=== PATIENT | female | born 1980 | race Two or more races ===

== ENCOUNTER → 2024-11-06 | Outpatient (CLI) | payer MEDICAID, SELFPAY ==
--- NOTE | 2024-11-06 10:15 | XR_ITS ---
Examination: Screening digital mammography, bilateral Computer aided detection 3-D breast Tomosynthesis, bilateral Date and time of exam: November 06, 2024 1031 hours Comparison left breast sonogram July 19, 2022 Indication: Screening Technique: Nonmagnified MLO, CC views of the breasts to been obtained, reconstructed from 3-D Tomosynthesis images. R2 computer aided detection program utilized for evaluation of suspicious masses and/or abnormal calcifications. 3-D Tomosynthesis images obtained. Findings: The breasts are heterogeneously dense, which may obscure small masses 12 mm focal asymmetry upper right breast MLO view, 5.9 cm from the nipple Benign calcifications Impression: BI-RADS Category 0: Incomplete: Need additional imaging evaluation 12 mm focal asymmetry upper right breast MLO view, 5.9 cm from the nipple Recommend follow-up spot tomographic views upper outer quadrant right breast anterior depth, right breast sonography to complete the workup
== END | disposition home or self-care (01) ==
LOC: CDIM 10:25
PROVIDERS: Referring Provider Nurse Practitioner Family; Visit Provider Nurse Practitioner Family
DX: Z12.31 Encounter for screening mammogram for malignant neoplasm of breast (principal); R92.8 Other abnormal and inconclusive findings on diagnostic imaging of breast; N64.89 Other specified disorders of breast
CPT/HCPCS: 77063; 77067

== ENCOUNTER 2025-07-15 05:30 | Day surgery (SDC) | payer MEDICAID, SELFPAY ==
--- NOTE | 2025-07-13 06:33 | EKG_ITS ---
[facility] Test Date: 2025-07-13 Pat Name: BIANCA GROSSMAN Department: Room: - Gender: Female [employer] Concierge: LESLEE : 1980 Requested By: Julissa Montilla Order Number: [id number] Reading MD: Julissa Montilla Measurements Intervals [place] Rate: 68 P: 44 AL: 156 QRS: 18 QRSD: 97 T: 33 QT: 369 QTc: 393 Interpretive Statements SINUS RHYTHM No previous ECG available for comparison /[id number]/[email or web address]/[id number]
[2025-07-13 07:29] VITALS: BMI 30.1
[2025-07-13 09:53] LABS: Basophils # (Auto) 0.0 Thou/mm3 (0.0-0.2); Basophils % (Auto) 0 % (0-2.5); Eosinophils # (Auto) 0.1 Thou/mm3 (0.0-0.5); Eosinophils % (Auto) 1 % (0-10); Hematocrit 33.4 % (36.0-46.0); Hemoglobin 9.2 g/dL (12.0-16.0); Immature Granulocytes Auto 0.03 Thou/mm3 (0.00-0.00); Lymphocytes # (Auto) 2.6 Thou/mm3 (1.0-4.8); Lymphocytes % (Auto) 30 % (10-50); Mean Corpuscular HGB Conc 27.5 g/dl (31.0-37.0); Mean Corpuscular Hemoglobin 20.1 pg (25.0-35.0); Mean Corpuscular Volume 73 fL (80-100); Monocytes # (Auto) 0.6 Thou/mm3 (0.0-0.8); Monocytes % (Auto) 7 % (0-12); Neutrophils # (Auto) 5.3 Thou/mm3 (1.8-7.7); Neutrophils % (Auto) 62 % (37-80); Nucleated Red Blood Cell # 0.00 Thou/mm3 (0.00-0.00); Nucleated Red Blood Cell % 0 /100 WBC (0); Platelet Count 395 Thou/mm3 (140-440); RDW Standard Deviation 43.1 fL (36.4-46.3); Red Blood Count 4.57 Miln/mm3 (4.00-5.20); White Blood Count 8.5 Thou/mm3 (3.6-11.0)
[2025-07-13 10:03] LABS: Alanine Aminotransferase 24 U/L (10-49); Albumin, Serum 4.9 gm/dL (3.5-5.0); Albumin/Globulin Ratio 1.6 (1.2-2.2); Alkaline Phosphatase 86 U/L (46-116); Anion Gap 9 (7-16); Aspartate Amino Transferase 15 U/L (0-34); BUN/Creatinine Ratio 15 Ratio (12-20); Bilirubin,Total 0.4 mg/dL (0.3-1.2); Blood Urea Nitrogen 12 mg/dL (9-23); Calcium 10.2 mg/dL (8.3-10.6); Calcium (Corrected) 10.2 mg/dL (8.5-10.1); Carbon Dioxide 23.0 mMol/L (20.0-31.0); Chloride 106 mMol/L (98-107); Creatinine (Component) 0.8 mg/dL (0.6-1.3); Estimated Creatinine Clearance 75.8 mL/min (>60); Globulin 3.0 gm/dL (2.3-3.5); Glucose 142 mg/dL (74-106); Osmolality,Calculated 277 (275-295); Potassium 4.1 mMol/L (3.4-5.1); Sodium 138 mMol/L (136-145); Total Protein 7.9 gm/dL (5.7-8.2); eGFR > 60 See Note
--- NOTE | 2025-07-14 14:56 | SUR.PREOP ---
Pt notified to come in tomorrow at 0545 for surgery.
[2025-07-15] VITALS (9 sets, daily range): BP systolic 116–134; BP diastolic 64–81; PULSE 68–79; RESP 16–25; TEMP 36.2–36.6; O2SAT 87–99; BMI 30.4
--- NOTE | 2025-07-15 09:06 | ESOP_ITS ---
Date of Procedure 07/15/25 Pre Op Diagnosis Incarcerated periumbilical incisional hernia Post Op Diagnosis Incarcerated periumbilical incisional hernia Procedure Laparoscopic assisted repair of incarcerated incisional hernia with mesh Findings Patient was noted to have 2 periumbilical incisional hernias in close proximity with incarcerated omentum Procedure Description Patient brought into the operating room in supine position. After administration of general orotracheal anesthesia, patient's abdomen prepped and draped in standard surgical manner. A 5 mm incision was made in left upper quadrant and Veress needle was inserted, pneumoperitoneum was obtained to 15 mmHg. The Veress needle was removed and a 5 mm trocar was placed. Laparoscopic camera was inserted, under direct visualization a laparoscopic camera a 5 mm trocar placed in left lower quadrant and additional 5 mm trocar placed in right lower quadrant. The abdomen was inspected and patient was noted to have an incarcerated periumbilical incisional hernia with omentum being incarcerated within the hernia sac. The omentum was reduced and patient was noted to have 2 incisional hernias in close proximity, each was approximately 1.5 cm in diameter. At this point approximately 4 cm semicircular incision was made to the right and around the umbilicus and dissection was deepened into soft tissue. The hernia sac was circumferentially dissected off surrounding tissue and excised from surrounding abdominal fascia. The fascia was cleared from overlying tissue. The defects were in close proximity and they were connected, the total hernia defect was approximately 4 cm. A 4 x 6 elliptical shape proceed mesh was used to cover the defect. 2 tacking sutures using 0 Ethibond placed the 2 ends of the mesh and the mesh was placed inside the abdominal cavity through the hernia defect. The defect was closed with interrupted sutures using 0 Ethibond. The umbilicus was tacked into the underlying abdominal fascia was 2-0 Vicryl suture in subcutaneous tissue closed with interrupted sutures of 2-0 Vicryl. The abdomen was once again insufflated. 2 tacking sutures of the 2 ends of the mesh were retrieved through the previously marked abdominal wall site. Sutures were tightened and the mesh was further secured into anterior abdominal wall with secure strap tacking device. The mesh was covering the defect with at least 4 cm circumferential margin. Hemostasis was adequate and satisfactory. Instruments and trocars removed, pneumoperitoneum was evacuated and the incisions closed 4-0 Monocryl subcuticular fashion. Instruments, needles and sponge counts were reported to be correct ?2 patient tolerated the procedure well. Patient was extubated, breathing spontaneously and without difficulty and was transferred to postanesthesia care in stable condition. Anesthesia GETA and local Pathology / specimen Other (Hernia sac and contents) Estimated Blood Loss 10 Condition Stable Disposition PACU Surgeon Julissa Montilla MD Surgical Staff Operation Date: 07/15/25 07:30 Case Staff Anesthesiologist: Chris Carbajal RN First Assistant: Clotilde Del Toro RNaircraft structural repair mechanic: Jeanie Sue
--- NOTE | 2025-07-15 09:08 | SUR.PHASEI ---
pt received from OR in recovery bay 1. pt asleep but responds to voice, breathing unlabored on oxymask 6l. v/s stable. pt dressing to abd cdi, abd binder in place. report received from Dr. Carbajal and Keo SEPULVEDA.
--- NOTE | 2025-07-15 09:39 | SUR.PHASEII ---
pt able to tolerate oral fluids without difficulty swallowing or nausea/vomiting.
--- NOTE | 2025-07-15 10:42 | SUR.PHASEII ---
pt awake and alert, breathing unlabored on room air. v/s stable. pt dressing to abd cdi, abd binder in place. pt able to ambulate to wheelchair with steady gait. d/c instructions given with Judson in room using risk professional [id number], all questions answered. pt d/c via wheelchair with all belongings.
== END 2025-07-15 10:42 | disposition home or self-care (01) ==
PROVIDERS: Anesthesiology; PCP Nurse Practitioner Family; Referring Provider Surgery; Visit Provider Surgery
PROC: 0WQF4ZZ Repair Abdominal Wall, Percutaneous Endoscopic Approach (ICD-10-PCS; CPT 49594; principal; 2025-07-15 07:30)
DX: K43.0 Incisional hernia with obstruction, without gangrene (principal); Z01.810 Encounter for preprocedural cardiovascular examination
CPT/HCPCS: 49594; 36415; 80048; 80053; 85025; 93005; A4649; C1781; J0131; J0690; J1100; J1885; J2250; J2405; J2704; J3010; J3490; A9270